=== PATIENT | female | born 1965 | race Caucasian/White ===

== ENCOUNTER 2016-10-14 18:20 | Emergency (ER) | payer MEDICAID ==
[2016-10-14 18:28] VITALS: BP 124/78; BMI 26.3
--- NOTE | 2016-10-14 18:38 | DR.GENAD ---
HPI - PCP Primary Care Physician: nfd - HPI Comment HPI Comment: PATIENT IS NAUSEATED. NO DIARRHEA OR DYSURIA. HAVE CYST ON KIDNEY AND THAT AREA HURT WORSE. CURRENTLY UNDERGOING WORKUP BY FISCAL TECHNICIAN FOR PERSISTENT LEUKOCYTOSIS. - Complaint/Symptoms Chief Complaint Doctors Comments: ABDOMINAL AND GENERALIZE BODY PAIN TIMES SEVERAL DAYS, Chief Complaint:: pt states" i had blood work done today and i'm dehydrated i'm in so much pain all over my body" - Nurses notes reviewed Nurses Notes Review: Yes - Source History Provided: Patient - Mode of Arrival Mode of Arrival: Ambulatory - Timing Onset of Chief Complaint: 10/12/16 Came on: Gradually - Duration Duration: Constant Duration: Days - Severity Severity: Moderate PMH - PMH Past Medical History: Yes Past Medical History: Hypertension Past Medical History Comment: cyst on rt kidney Past Surgical History: Yes Surgical History: Abdominal Surgery, Appendectomy, , Cholecystectomy, Hysterectomy - Family History History of Family Medical Conditions: Yes Family Medical History: Cancer - Social History Type of Tobacco Use: Cigarettes Does any household member use tobacco: Yes Alcohol Use: None Do you use any recreational Drugs:: No Lives With: Family Lives Where: Home - infectious screening In the last 2 months have you had wt loss of >10#?: NO Have you had fever, night sweats or hemotysis?: No Have you traveled outside the country in the last 6 months?: No Isolation: Standard ROS - Review of Systems Constitutional: Weakness, Fatigue. negative: Chills, Fever Eyes: No Symptoms Reported. negative: Eye Pain, Discharge ENTM: No Symptoms Reported. negative: Ear Pain, Nose Discharge, Nose Congestion , Throat Pain Respiratoy: No Symptoms Reported. negative: Productive Cough, Short of Breath, Wheezing, Hemoptysis Cardiovascular: No Symptoms Reported Gastrointestinal/Abdominal: Abdominal Pain, Nausea Genitourinary: No Symptoms Reported. negative: Dysuria, Frequency, Hematuria Neurological: Weakness. negative: Headache, Dizziness Musculoskeletal: Muscle Pain Integumentary: No Symptoms Reported Hematologic/Lymphatic: No Symptoms Reported Endocrine: No Symptoms Reported All Other Systems: Reviewed and Negative PE - Vital Signs Vitals: Temperature 99 F Pulse Rate 110 Respiratory Rate 18 Blood Pressure 124/78 O2 Sat by Pulse Oximetry 98 - General Limitations: No Limitations General Appearance: Alert - Head Head Exam: Normal Inspection - Eyes Eye exam: Normal Appearance - ENT ENT Exam: Normal External Ear Exam External Ear Exam: Normal External Inspection TM/Canal Exam: Bilateral Normal Nose Exam: Normal Nose Exam Mouth Exam: Normal Inspection Throat Exam: Normal Inspection - Neck Neck Exam: Trachea Midline - Chest Chest Inspection: Symmetric Chest Wall Rise - Respiratory Respiratory Exam: Normal Lung Sounds Bilat Respiratory Exam: Bilateral Clear to Auscultation - Cardiovascular Cardiovascular Exam: Regular Rate, Normal Rhythm, Normal Heart Sounds - Abdominal Exam Abdominal Exam: Normal Bowel Sounds, Soft, Tenderness Abdominal Tenderness: Diffuse, Moderate - Extremities Extremities Exam: Normal Inspection - Back Back Exam: Normal Inspection - Neurologic Neurological Exam: Alert, Oriented X3 - Psychiatric Psychiatric Exam: Anxious - Skin Skin Exam: Normal Color [facility] - Additional Information Additional Information Obtained From: Family (ABDOMINAL PAIN, UTI, PNEUMONIA, BOWEL OBSTRUCTION) - Differential Diagnosis Differential Diagnosis: ABDOMINAL PAIN, GENERALIZE PAIN, WEAKNESS, HISTORY LEUKOCYTOSIS Course - Treatment Treatment: SEE ORDERS - Education/Counseling Education/Counseling: Patient, Family, Education Educated On: Treatment, Diagnosis, Needs for Follow Up ROR - Labs Reviewed Result Diagrams: 10/14/16 19:00 10/14/16 19:00 Laboratory: WBC 20.4 X10^3/uL (3.6-10.0) H* 10/14/16 19:00 RBC 5.42 X10^6/uL (3.5-5.4) H 10/14/16 19:00 Hgb 13.3 g/dL (12.0-16.0) 10/14/16 19:00 Hct 40.6 % (36.0-47.0) 10/14/16 19:00 MCV 74.9 fL (80.0-100.0) L 10/14/16 19:00 MCH 24.5 pg (27.0-34.0) L 10/14/16 19:00 MCHC 32.8 g/dL (33.0-35.0) L 10/14/16 19:00 RDW 19.1 % (11.6-16.5) H 10/14/16 19:00 Plt Count 544 X10^3/uL (150.0-450.0) H 10/14/16 19:00 Plt Count Comment Adequate (ADEQUATE) 10/14/16 19:00 MPV 7.6 fL (7.4-11.0) 10/14/16 19:00 Neut % 74.9 % (42.0-75.0) 10/14/16 19:00 Lymph % 17.6 % (21.0-51.0) L 10/14/16 19:00 [place] % 4.4 % (0.0-13.0) 10/14/16 19:00 Eos % 2.3 % (0.9-2.9) 10/14/16 19:00 Baso % 0.8 % (0.2-1.0) 10/14/16 19:00 Neut # 15.3 x10^3/uL (2.2-4.8) H 10/14/16 19:00 Lymph # 3.6 X10^3/uL (1.3-2.9) H 10/14/16 19:00 [place] # 0.9 x10^3/uL (0.3-0.8) H 10/14/16 19:00 Eos # 0.5 x10^3/uL (0.0-0.2) H 10/14/16 19:00 Baso # 0.2 X10^3/uL (0.0-0.1) H 10/14/16 19:00 Absolute Nucleated RBC 0.0 /100WBC 10/14/16 19:00 Total Counted 100 10/14/16 19:00 Neutrophils % (Manual) 82 % (39-76) H 10/14/16 19:00 Lymphocytes % (Manual) 15 % (13-43) 10/14/16 19:00 Eosinophils % (Manual) 3 % (0-6) 10/14/16 19:00 Plt Morphology Comment Normal (NORMAL) 10/14/16 19:00 RBC Morphology Abnormal (NORMAL) A 10/14/16 19:00 Hypochromasia Slight A 10/14/16 19:00 Microcytosis 1+ A 10/14/16 19:00 Sodium 143 mmol/L (136-145) 10/14/16 19:00 Corrected Sodium TNP 10/14/16 19:00 Potassium 3.8 mmol/L (3.5-5.1) 10/14/16 19:00 Chloride 108 mmol/L (98-107) H 10/14/16 19:00 Carbon Dioxide 22.2 mmol/L (21-32) 10/14/16 19:00 BUN 7 mg/dL (7-18) 10/14/16 19:00 Creatinine 0.63 mg/dL (0.55-1.02) 10/14/16 19:00 Est GFR (MDRD) Af Amer > 60 (>60) 10/14/16 19:00 Est GFR (MDRD) Non-Af > 60 (>60) 10/14/16 19:00 Glucose 109 mg/dL (65-99) H 10/14/16 19:00 Calcium 9.0 mg/dL (8.5-10.1) 10/14/16 19:00 Corrected Calcium TNP 10/14/16 19:00 Total Bilirubin 0.10 mg/dL (0.2-1.0) L 10/14/16 19:00 AST 14 Units/L (15-37) L 10/14/16 19:00 ALT 23 Units/L (12-78) 10/14/16 19:00 Alkaline Phosphatase 145 Units/L (46-116) H 10/14/16 19:00 Total Protein 7.9 g/dL (6.4-8.2) 10/14/16 19:00 Albumin 3.8 g/dL (3.4-5.0) 10/14/16 19:00 Globulin 4.1 g/dL (2.5-4.5) 10/14/16 19:00 Albumin/Globulin Ratio 0.9 Ratio (1.1-2.1) L 10/14/16 19:00 Amylase 87 Units/L (25-115) 10/14/16 19:00 Lipase 249 Units/L (73-393) 10/14/16 19:00 Specimen Type Clean catch urine 10/14/16 19:25 Urine Color Yellow (YELLOW) 10/14/16 19:25 Urine Appearance Clear (CLEAR) 10/14/16 19:25 Urine pH 6.0 (5.0 - 8.0) 10/14/16 19:25 Ur Specific [place] 1.015 (1.000-1.030) 10/14/16 19:25 Urine Protein Negative (NEGATIVE) 10/14/16 19:25 Urine Glucose (UA) Negative (NEGATIVE) 10/14/16 19:25 Urine Ketones Negative (NEGATIVE) 10/14/16 19:25 Urine Occult Blood 1+ (NEGATIVE) 10/14/16 19:25 Urine Nitrite Negative (NEGATIVE) 10/14/16 19:25 Urine Bilirubin Negative (NEGATIVE) 10/14/16 19:25 Urine Urobilinogen Normal (NORMAL) 10/14/16 19:25 Ur Leukocyte Esterase 2+ (NEGATIVE) 10/14/16 19:25 Urine RBC 0-1 /HPF (NEGATIVE) 10/14/16 19:25 Urine WBC 0-2 /HPF (NEGATIVE) 10/14/16 19:25 Ur Squamous Epith Cells Few /HPF (NEGATIVE) 10/14/16 19:25 Amorphous Sediment Trace /HPF (NEGATIVE) 10/14/16 19:25 Urine Bacteria Trace /HPF (NEGATIVE) 10/14/16 19:25 Urine Mucus Rare /HPF (NEGATIVE) 10/14/16 19:25 Ur Culture Indicated? No/not indicated 10/14/16 19:25 - Diagnosis Discharge Problem: Generalized pain Abdominal pain Qualifiers: Abdominal location: generalized Qualified Code(s): R10.84 - Generalized abdominal pain Leukocytosis Qualifiers: Leukocytosis type: unspecified Qualified Code(s): D72.829 - Elevated white blood cell count, unspecified - Discharge Plan Disposition: HOME, SELF-CARE Condition: Stable Prescriptions: Ondansetron HCl [Zofran Tab 4 mg] 4 mg PO Q8H PRN #12 tab PRN Reason: Nausea/Vomiting Tramadol HCl 50 mg PO Q8H PRN #15 tab PRN Reason: Pain - Follow ups/Referrals Follow ups/Referrals: NFD,None [Primary Care Provider] - 10/15/16 - Instructions Instructions: Abdominal Pain, Adult, [id number], Leukocytosis Additional Instructions: return to ed if worse,
[2016-10-14] MEDS ORDERED: ZOFRAN INJ 4 MG VIAL IVP ONE (18:47)
[2016-10-14] MEDS ORDERED: DEMEROL INJ IVP ONE (18:47)
[2016-10-14] MEDS ORDERED: ZOFRAN INJ 4 MG VIAL ONE (18:54)
[2016-10-14] MEDS ORDERED: NS 1000 ML 1,000 ML ONE (18:54)
[2016-10-14] MEDS ORDERED: DEMEROL INJ ONE (18:56)
[2016-10-14] MEDS ORDERED: NS 1000 ML 1,000 ML IV SCH (19:00)
[2016-10-14 19:20] LABS: BASOPHILS # (AUTO) 0.2 X10^3/uL (0.0-0.1); BASOPHILS % (AUTO) 0.8 % (0.2-1.0); EOSINOPHILS # (AUTO) 0.5 x10^3/uL (0.0-0.2); EOSINOPHILS % (AUTO) 2.3 % (0.9-2.9); HEMATOCRIT 40.6 % (36.0-47.0); HEMOGLOBIN 13.3 g/dL (12.0-16.0); LYMPHOCYTES # (AUTO) 3.6 X10^3/uL (1.3-2.9); LYMPHOCYTES % (AUTO) 17.6 % (21.0-51.0); MEAN CORPUSCULAR HEMOGLOBIN 24.5 pg (27.0-34.0); MEAN CORPUSCULAR HGB CONC 32.8 g/dL (33.0-35.0); MEAN CORPUSCULAR VOLUME 74.9 fL (80.0-100.0); MEAN PLATELET VOLUME 7.6 fL (7.4-11.0); MONOCYTES # (AUTO) 0.9 x10^3/uL (0.3-0.8); MONOCYTES % (AUTO) 4.4 % (0.0-13.0); NEUTROPHILS # (AUTO) 15.3 x10^3/uL (2.2-4.8); NEUTROPHILS % (AUTO) 74.9 % (42.0-75.0); PLATELET COUNT 544 X10^3/uL (150.0-450.0); RED BLOOD COUNT 5.42 X10^6/uL (3.5-5.4); RED CELL DISTRIBUTION WIDTH 19.1 % (11.6-16.5)
[2016-10-14 19:27] LABS: WHITE BLOOD COUNT 20.4 X10^3/uL (3.6-10.0)
[2016-10-14 19:29] LABS: ALANINE AMINOTRANSFERASE 23 Units/L (12-78); ALBUMIN 3.8 g/dL (3.4-5.0); ALKALINE PHOSPHATASE 145 Units/L (46-116); AMYLASE 87 Units/L (25-115); ASPARTATE AMINO TRANSFERASE 14 Units/L (15-37); BLOOD UREA NITROGEN 7 mg/dL (7-18); CARBON DIOXIDE 22.2 mmol/L (21-32); CHLORIDE 108 mmol/L (98-107); CREATININE 0.63 mg/dL (0.55-1.02); GLUCOSE 109 mg/dL (65-99); LIPASE 249 Units/L (73-393); SODIUM 143 mmol/L (136-145); TOTAL PROTEIN 7.9 g/dL (6.4-8.2); eGFR BLACK RACES > 60 (>60); eGFR NON BLACK RACES > 60 (>60)
[2016-10-14 19:35] LABS: HYPOCHROMASIA SLIGHT; MICROCYTOSIS 1+; PLATELET MORPHOLOGY COMMENT NORMAL (NORMAL)
[2016-10-14 19:51] LABS: BILIRUBIN,URINE NEGATIVE (NEGATIVE); BLOOD/HEMOGLOBIN,URINE 1+ (NEGATIVE); GLUCOSE, URINE NEGATIVE (NEGATIVE); KETONES,URINE NEGATIVE (NEGATIVE); LEUKOCYTE ESTERASE ,URINE 2+ (NEGATIVE); NITRITES,URINE NEGATIVE (NEGATIVE); PROTEIN,URINE NEGATIVE (NEGATIVE); UROBILINOGEN,URINE NORMAL (NORMAL)
[2016-10-14 19:58] LABS: APPEARANCE,URINE CLEAR (CLEAR); BACTERIA,URINE TRACE /HPF (NEGATIVE); COLOR,URINE YELLOW (YELLOW); RBC,URINE 0-1 /HPF (NEGATIVE); SQUAMOUS EPITHELIAL CELL,UR FEW /HPF (NEGATIVE)
[2016-10-14 19:59] LABS: AMORPHOUS SEDIMENT,UR TRACE /HPF (NEGATIVE); MUCUS,URINE RARE /HPF (NEGATIVE)
--- NOTE | 2016-10-14 20:18 | RAD ---
HISTORY: Fever. Study: Single-view chest. Comparison: Acute abdominal series dated April 26, 2016. Findings: The trachea is midline. The cardiac silhouette is normal. The lungs are clear without focal infilt rate or effusion. The bony thorax is unremarkable. IMPRESSION: No acute cardiopulmonary disease. Reported By:
--- NOTE | 2016-10-14 20:29 | CT ---
CT OF THE ABDOMEN AND PELVIS WITHOUT CONTRAST HISTORY: Abdominal pain. Comparison: None Technique: Multiple axial images of the abdomen and pelvis were obtained from the lung bases to the pubic symph ysis without the administration of IV contrast. Dose reduction techniques including Automated Expos ure Control (AEC) and adjustment of mA and kV were utlized. Findings: The heart is normal in size. There is no pericardial effusion. Lung bases are clear without focal co nsolidation, pleural effusion or pneumothorax. The sensitivity for focal lesion detection within the solid abdominal viscera is diminished without the use of IV contrast. Liver and spleen are normal in size, and contour. No focal lesions. No ductal dilitation. Gallbladde r absent. The pancreas is unremarkable. Adrenal glands are normal. Kidneys are normal in contour wit hout hydronephrosis or nephrolithiasis. Simple right renal cyst. No bowel obstruction or inflammation. No abnormal appearing mesenteric or retroperitoneal lymph nod es. No free fluid or fluid collections. The bladder is normal in appearance. Status post hysterectomy. No free fluid or abnormal pelvic lymp h nodes. No aggressive osseous lesions. IMPRESSION: 1. No source of patient's right abdominal pain is identified. Reported By:
[2016-10-14] MEDS ORDERED: ULTRAM PO ONE (21:19)
[2016-10-14] MEDS ORDERED: ULTRAM ONE (21:23)
== END 2016-10-14 21:40 | disposition home or self-care (01) ==
LOC: ER 18:20
DX: R10.84 Generalized abdominal pain (principal); D72.828 Other elevated white blood cell count; R52 Pain, unspecified
CPT/HCPCS: 36415; 71010; 74176; 80053; 81001; 82150; 83690; 85025; 96365; 96367; 96374; 96375; 99283; A4222; J2175; J2405

== ENCOUNTER → 2017-01-23 | Outpatient (CLI) | payer MEDICAID ==
--- NOTE | 2017-01-23 12:12 | MRI ---
HISTORY: Bilateral headaches. Study: MRI brain without contrast. Comparison: None. Technique: Multiplanar multi-sequence MRI of the brain was obtained utilizing standard departmental protocol. Sagittal and axial T1 weighted images were obtained. Axial T2 and flair weighted images were performed as well. Axial diffusion weighted and ADC trace mapping was performed. Findings: The midline structures appear unremarkable. The evaluation of the brain parenchyma demonstrates no abnormal signal characteristics to suggest intraparenchymal mass or hemorrhage. No extra-axial flui d collections are observed. The ventricular system appears symmetric and nondilated. The CP angle is normal in its appearance without brainstem mass or evidence for acoustic neuroma. The flow void s on both T1 and T2 weighted imaging appear unremarkable. Evaluation of the diffusion weighted imag ing does not demonstrate abnormal signal characteristics to suggest acute ischemic change. Mucous r etention cyst within the right maxillary sinus. Otherwise the visualized paranasal sinuses and masto id air cells are clear. IMPRESSION: 1. Unremarkable MRI of the brain without contrast. Reported By:
== END ==
LOC: RAD 10:27
PROVIDERS: ATTEND Psychiatry & Neurology Neurology
DX: R51 Headache (principal)
CPT/HCPCS: 70551

== ENCOUNTER 2017-08-27 11:59 | Emergency (ER) | payer MEDICAID ==
[2017-08-27 12:14] VITALS: BP 125/76; BMI 27.8
--- NOTE | 2017-08-27 12:47 | DR.GENAD ---
HPI - PCP Primary Care Physician: dr perry - Complaint/Symptoms Chief Complaint:: patient stated 3 weeks ago she has been feeling like she has been cold,hot,fever and body aches. she stated her amonia level was high one time and was in the hospital last year for it. - Source History Provided: Patient - Mode of Arrival Mode of Arrival: Ambulatory - Timing Onset of Chief Complaint: 08/06/17 PMH - PMH Past Medical History: Yes Past Medical History: Migraines, Hypertension Past Medical History Comment: hx 'high NH3' but no dx cirrhosis or hepatitis Past Surgical History: Yes Surgical History: Abdominal Surgery, Appendectomy, , Cholecystectomy, Hysterectomy - Family History History of Family Medical Conditions: Yes Family Medical History: Cancer - Social History Does patient currently use any type of tobacco product: Yes Have you used tobacco products in the last 12 months: Yes Type of Tobacco Use: Cigarettes How many years tobacco product used: 30 Does any household member use tobacco: Yes Alcohol Use: None Do you use any recreational Drugs:: No Lives With: Alone Lives Where: Home - infectious screening In the last 2 months have you had wt loss of >10#?: NO Have you had fever, night sweats or hemotysis?: No Have you traveled outside the country in the last 6 months?: No Isolation: Standard ROS - Review of Systems Constitutional: See HPI, Chills, Diaphoresis, Fever, Malaise, Weakness Eyes: No Symptoms Reported ENTM: Nose Congestion, Throat Pain Respiratoy: Non-Productive Cough Cardiovascular: No Symptoms Reported. negative: Edema, Palpitations Gastrointestinal/Abdominal: Diarrhea, Nausea, Vomiting Genitourinary: No Symptoms Reported Neurological: No Symptoms Reported Musculoskeletal: Joint Pain, Muscle Pain (diffuse) Integumentary: No Symptoms Reported Hematologic/Lymphatic: No Symptoms Reported Endocrine: No Symptoms Reported Psychiatric: No Symptoms Reported All Other Systems: Reviewed and Negative PE - Vital Signs Vitals: Temperature 98.8 F Pulse Rate 94 Respiratory Rate 18 Blood Pressure 125/76 O2 Sat by Pulse Oximetry 96 - General Limitations: No Limitations General Appearance: Alert, In No Apparent Distress. negative: Appears Intoxicated, Anxious, Lethargic, Obtunded, In Distress, Obese, Cachectic - Head Head Exam: Normal Inspection, Normocephalic - Eyes Eye exam: Normal Appearance - ENT ENT Exam: Other (both frontal and both max sinuses +TTP) Nose Exam: Normal Nose Exam Mouth Exam: Normal Inspection Throat Exam: Tonsillar Erythema. negative: Tonsillar Exudate, R Peritonsillar Mass, L Peritonsillar Mass - Neck Neck Exam: Normal Inspection, Full ROM - Chest Chest Inspection: Normal Inspection, Symmetric Chest Wall Rise - Respiratory Respiratory Exam: Normal Lung Sounds Bilat Respiratory Exam: Bilateral Clear to Auscultation - Cardiovascular Cardiovascular Exam: Regular Rate, Normal Rhythm, Normal Heart Sounds - Abdominal Exam Abdominal Exam: Normal Inspection, Normal Bowel Sounds, Soft. negative: Tenderness, Guarding, Rebound, Rigidity - Extremities Extremities Exam: Normal Inspection, Full ROM - Back Back Exam: (R) CVA Tenderness, (L) CVA Tenderness - Neurologic Neurological Exam: Alert, Oriented X3 - Psychiatric Psychiatric Exam: Normal Affect, Normal Mood ROR - Labs Reviewed Laboratory Results Reviewed?: Yes (flu neg, strep -, UA +) Result Diagrams: 08/27/17 13:00 08/27/17 13:00 Laboratory: WBC 22.2 X10^3/uL (3.6-10.0) H 08/27/17 13:00 RBC 5.27 X10^6/uL (3.5-5.4) 08/27/17 13:00 Hgb 13.6 g/dL (12.0-16.0) 08/27/17 13:00 Hct 40.6 % (36.0-47.0) 08/27/17 13:00 MCV 77.1 fL (80.0-100.0) L 08/27/17 13:00 MCH 25.8 pg (27.0-34.0) L 08/27/17 13:00 MCHC 33.5 g/dL (33.0-35.0) 08/27/17 13:00 RDW 17.4 % (11.6-16.5) H 08/27/17 13:00 Plt Count 598 X10^3/uL (150.0-450.0) H 08/27/17 13:00 Plt Count Comment Increased (ADEQUATE) A 08/27/17 13:00 MPV 7.7 fL (7.4-11.0) 08/27/17 13:00 Neut % 82.2 % (42.0-75.0) H 08/27/17 13:00 Lymph % 11.4 % (21.0-51.0) L 08/27/17 13:00 [place] % 3.9 % (0.0-13.0) 08/27/17 13:00 Eos % 1.7 % (0.9-2.9) 08/27/17 13:00 Baso % 0.8 % (0.2-1.0) 08/27/17 13:00 Neut # 18.2 x10^3/uL (2.2-4.8) H 08/27/17 13:00 Lymph # 2.5 X10^3/uL (1.3-2.9) 08/27/17 13:00 [place] # 0.9 x10^3/uL (0.3-0.8) H 08/27/17 13:00 Eos # 0.4 x10^3/uL (0.0-0.2) H 08/27/17 13:00 Baso # 0.2 X10^3/uL (0.0-0.1) H 08/27/17 13:00 Absolute Nucleated RBC 0.0 /100WBC 08/27/17 13:00 Total Counted 100 08/27/17 13:00 Neutrophils % (Manual) 84 % (39-76) H 08/27/17 13:00 Lymphocytes % (Manual) 10 % (13-43) L 08/27/17 13:00 Monocytes % (Manual) 4 % (4-9) 08/27/17 13:00 Eosinophils % (Manual) 2 % (0-6) 08/27/17 13:00 Nucleated RBCs 2 08/27/17 13:00 Plt Morphology Comment Normal (NORMAL) 08/27/17 13:00 RBC Morphology Normal (NORMAL) 08/27/17 13:00 Sodium 137 mmol/L (136-145) 08/27/17 13:00 Corrected Sodium 138 mmol/L (136-145) 08/27/17 13:00 Potassium 3.5 mmol/L (3.5-5.1) 08/27/17 13:00 Chloride 101 mmol/L (98-107) 08/27/17 13:00 Carbon Dioxide 28.1 mmol/L (21-32) 08/27/17 13:00 BUN 5 mg/dL (7-18) L 08/27/17 13:00 Creatinine 0.70 mg/dL (0.55-1.02) 08/27/17 13:00 Est GFR (MDRD) Af Amer > 60 (>60) 08/27/17 13:00 Est GFR (MDRD) Non-Af > 60 (>60) 08/27/17 13:00 Glucose 125 mg/dL (65-99) H 08/27/17 13:00 Calcium 9.6 mg/dL (8.5-10.1) 08/27/17 13:00 Corrected Calcium TNP 08/27/17 13:00 Total Bilirubin 0.20 mg/dL (0.2-1.0) 08/27/17 13:00 AST 18 Units/L (15-37) 08/27/17 13:00 ALT 17 Units/L (12-78) 08/27/17 13:00 Alkaline Phosphatase 128 Units/L (46-116) H 08/27/17 13:00 Ammonia 22 umol/L (11-32) 08/27/17 13:00 Total Protein 8.3 g/dL (6.4-8.2) H 08/27/17 13:00 Albumin 3.8 g/dL (3.4-5.0) 08/27/17 13:00 Globulin 4.5 g/dL (2.5-4.5) 08/27/17 13:00 Albumin/Globulin Ratio 0.8 Ratio (1.1-2.1) L 08/27/17 13:00 Specimen Type Clean catch urine 08/27/17 14:55 Urine Color Yellow (YELLOW) 08/27/17 14:55 Urine Appearance Hazy (CLEAR) 08/27/17 14:55 Urine pH 6.5 (5.0 - 8.0) 08/27/17 14:55 Ur Specific [place] 1.015 (1.000-1.030) 08/27/17 14:55 Urine Protein 2+ (NEGATIVE) 08/27/17 14:55 Urine Glucose (UA) Negative (NEGATIVE) 08/27/17 14:55 Urine Ketones Negative (NEGATIVE) 08/27/17 14:55 Urine Occult Blood 1+ (NEGATIVE) 08/27/17 14:55 Urine Nitrite Negative (NEGATIVE) 08/27/17 14:55 Urine Bilirubin Negative (NEGATIVE) 08/27/17 14:55 Urine Urobilinogen Normal (NORMAL) 08/27/17 14:55 Ur Leukocyte Esterase 1+ (NEGATIVE) 08/27/17 14:55 Urine RBC 0-2 /HPF (NEGATIVE) 08/27/17 14:55 Urine WBC 3-5 /HPF (NEGATIVE) 08/27/17 14:55 Ur Squamous Epith Cells Few /HPF (NEGATIVE) 08/27/17 14:55 Urine Bacteria 1+ /HPF (NEGATIVE) 08/27/17 14:55 Ur Culture Indicated? No/not indicated 08/27/17 14:55 Influenza Type A (PCR) Negative (NEGATIVE) 08/27/17 12:59 Influenza Type B (PCR) Negative (NEGATIVE) 08/27/17 12:59 S. pyogenes (TEM-PCR) Not detected (NOT DETECT) 08/27/17 12:59 - XRAY XRAY Interpreted by: Radiologist XRAY Findings: nothing acute on CXR - Diagnosis Discharge Problem: Sinusitis, acute, UTI (urinary tract infection) - Discharge Plan Disposition: 01 HOME, SELF-CARE Condition: Stable Prescriptions: Ondansetron [Zofran ODT 8 mg] 8 mg PO Q8H PRN #15 tab PRN Reason: Nausea/Vomiting - Follow ups/Referrals Follow ups/Referrals: NFD,None [Primary Care Provider] - 3 days - Instructions
[2017-08-27 13:17] LABS: BASOPHILS # (AUTO) 0.2 X10^3/uL (0.0-0.1); BASOPHILS % (AUTO) 0.8 % (0.2-1.0); EOSINOPHILS # (AUTO) 0.4 x10^3/uL (0.0-0.2); EOSINOPHILS % (AUTO) 1.7 % (0.9-2.9); HEMATOCRIT 40.6 % (36.0-47.0); HEMOGLOBIN 13.6 g/dL (12.0-16.0); LYMPHOCYTES # (AUTO) 2.5 X10^3/uL (1.3-2.9); LYMPHOCYTES % (AUTO) 11.4 % (21.0-51.0); MEAN CORPUSCULAR HEMOGLOBIN 25.8 pg (27.0-34.0); MEAN CORPUSCULAR HGB CONC 33.5 g/dL (33.0-35.0); MEAN CORPUSCULAR VOLUME 77.1 fL (80.0-100.0); MEAN PLATELET VOLUME 7.7 fL (7.4-11.0); MONOCYTES # (AUTO) 0.9 x10^3/uL (0.3-0.8); MONOCYTES % (AUTO) 3.9 % (0.0-13.0); NEUTROPHILS # (AUTO) 18.2 x10^3/uL (2.2-4.8); NEUTROPHILS % (AUTO) 82.2 % (42.0-75.0); PLATELET COUNT 598 X10^3/uL (150.0-450.0); RED BLOOD COUNT 5.27 X10^6/uL (3.5-5.4); RED CELL DISTRIBUTION WIDTH 17.4 % (11.6-16.5); WHITE BLOOD COUNT 22.2 X10^3/uL (3.6-10.0)
[2017-08-27 13:20] LABS: AMMONIA 22 umol/L (11-32)
[2017-08-27 13:23] LABS: ALANINE AMINOTRANSFERASE 17 Units/L (12-78); ALBUMIN 3.8 g/dL (3.4-5.0); ALKALINE PHOSPHATASE 128 Units/L (46-116); ASPARTATE AMINO TRANSFERASE 18 Units/L (15-37); BLOOD UREA NITROGEN 5 mg/dL (7-18); CALCIUM 9.6 mg/dL (8.5-10.1); CARBON DIOXIDE 28.1 mmol/L (21-32); CHLORIDE 101 mmol/L (98-107); COR NA(FOR HYPERGLY) 138 mmol/L (136-145); SODIUM 137 mmol/L (136-145); TOTAL PROTEIN 8.3 g/dL (6.4-8.2); eGFR BLACK RACES > 60 (>60); eGFR NON BLACK RACES > 60 (>60)
[2017-08-27 14:00] LABS: PLATELET MORPHOLOGY COMMENT NORMAL (NORMAL)
--- NOTE | 2017-08-27 14:53 | RAD ---
HISTORY: Fever Study: Chest PA and lateral Comparison: 10/14/2016 Findings: The heart is within normal limits in size. The sandee are normal. The lungs are well inflated and free of acute alveolar infiltrates. No pleural effusions are identified. The bony thorax is unremarkable. IMPRESSION: No significant abnormality identified Reported By:
[2017-08-27 15:05] LABS: BILIRUBIN,URINE NEGATIVE (NEGATIVE); BLOOD/HEMOGLOBIN,URINE 1+ (NEGATIVE); GLUCOSE, URINE NEGATIVE (NEGATIVE); KETONES,URINE NEGATIVE (NEGATIVE); LEUKOCYTE ESTERASE ,URINE 1+ (NEGATIVE); NITRITES,URINE NEGATIVE (NEGATIVE); PH,URINE 6.5 (5.0 - 8.0); PROTEIN,URINE 2+ (NEGATIVE); UROBILINOGEN,URINE NORMAL (NORMAL)
[2017-08-27 15:08] LABS: APPEARANCE,URINE HAZY (CLEAR); COLOR,URINE YELLOW (YELLOW)
[2017-08-27 15:11] LABS: BACTERIA,URINE 1+ /HPF (NEGATIVE); RBC,URINE 0-2 /HPF (NEGATIVE); SQUAMOUS EPITHELIAL CELL,UR FEW /HPF (NEGATIVE)
[2017-08-27] MEDS ORDERED: ROCEPHIN VIAL 1 GM IM ONE (15:31)
[2017-08-27] MEDS ORDERED: ROCEPHIN VIAL 1 GM ONE (15:38)
== END 2017-08-27 16:03 | disposition home or self-care (01) ==
LOC: ER 12:11
DX: J01.80 Other acute sinusitis (principal); N39.0 Urinary tract infection, site not specified
CPT/HCPCS: 36415; 71046; 80053; 81001; 82140; 85025; 87502; 87651; 96372; 99282; 99283; J0696

== ENCOUNTER 2017-09-06 15:50 | Inpatient (IN) | payer MEDICAID ==
[2017-09-06] MEDS ORDERED: ASPIRIN 81 MG CHEWTAB ONE (16:01)
[2017-09-06 16:30] LABS: BASOPHILS # (AUTO) 0.2 X10^3/uL (0.0-0.1); BASOPHILS % (AUTO) 1.2 % (0.2-1.0); EOSINOPHILS # (AUTO) 0.4 x10^3/uL (0.0-0.2); HEMATOCRIT 42.6 % (36.0-47.0); HEMOGLOBIN 14.3 g/dL (12.0-16.0); LYMPHOCYTES # (AUTO) 3.7 X10^3/uL (1.3-2.9); LYMPHOCYTES % (AUTO) 19.5 % (21.0-51.0); MEAN CORPUSCULAR HEMOGLOBIN 25.8 pg (27.0-34.0); MEAN CORPUSCULAR HGB CONC 33.6 g/dL (33.0-35.0); MEAN PLATELET VOLUME 7.9 fL (7.4-11.0); MONOCYTES % (AUTO) 5.5 % (0.0-13.0); NEUTROPHILS # (AUTO) 13.6 x10^3/uL (2.2-4.8); NEUTROPHILS % (AUTO) 71.8 % (42.0-75.0); PLATELET COUNT 566 X10^3/uL (150.0-450.0); RED BLOOD COUNT 5.53 X10^6/uL (3.5-5.4); RED CELL DISTRIBUTION WIDTH 17.1 % (11.6-16.5)
--- NOTE | 2017-09-06 16:42 | RAD ---
HISTORY: Mid sternal chest pain Study: Single-view chest Comparison: 08/27/2017 Findings: The trachea is midline. The cardiac silhouette is unremarkable. The lungs are clear without focal i nfiltrate or effusion. The bony thorax is unremarkable. IMPRESSION: 1. No acute cardiopulmonary disease. Reported By:
[2017-09-06 16:44] LABS: PLATELET MORPHOLOGY COMMENT NORMAL (NORMAL)
[2017-09-06 16:45] LABS: HYPOCHROMASIA SLIGHT
[2017-09-06 16:57] LABS: ALANINE AMINOTRANSFERASE 28 Units/L (12-78); ALBUMIN 4.1 g/dL (3.4-5.0); ALKALINE PHOSPHATASE 133 Units/L (46-116); ASPARTATE AMINO TRANSFERASE 11 Units/L (15-37); BLOOD UREA NITROGEN 7 mg/dL (7-18); CALCIUM 9.9 mg/dL (8.5-10.1); CARBON DIOXIDE 26.7 mmol/L (21-32); CHLORIDE 101 mmol/L (98-107); CKMB % 3.6 % (<4); COR NA(FOR HYPERGLY) 139 mmol/L (136-145); CREATINE KINASE 31 Units/L (26-192); CREATINE KINASE MB 1.1 ng/mL (0-4.0); MAGNESIUM 1.8 mg/dL (1.7-2.9); SODIUM 139 mmol/L (136-145); TOTAL PROTEIN 8.4 g/dL (6.4-8.2); TROPONIN I < 0.02 ng/mL (0-1.5); eGFR BLACK RACES > 60 (>60); eGFR NON BLACK RACES > 60 (>60)
[2017-09-06] MEDS ORDERED: TORADOL 30 MG VIAL IVP ONE (17:09)
--- NOTE | 2017-09-06 17:10 | DR.GENAD ---
HPI - PCP Primary Care Physician: LUANNE - Complaint/Symptoms Chief Complaint:: PT C/O CHEST PAIN (MIDSTERNAL) THAT RADIATES TO LT SHOULDER. PT DESCRIBES HER PAIN A HEAVINESS. PT STATES THE PAIN STARTED LAST NIGHT. Self Treatment fo Chief Complaint: PERCOCET - Nurses notes reviewed Nurses Notes Review: Yes - Source History Provided: Patient - Mode of Arrival Mode of Arrival: Ambulatory - Timing Onset of Chief Complaint: 09/05/17 Came on: Suddenly - Duration Duration: Constant Duration: Days PMH - PMH Past Medical History: Yes Past Medical History: Migraines, Hypertension Past Surgical History: Yes Surgical History: Abdominal Surgery, Appendectomy, , Cholecystectomy, Hysterectomy - Family History History of Family Medical Conditions: Yes Family Medical History: Cancer - Social History Does patient currently use any type of tobacco product: Yes Have you used tobacco products in the last 12 months: Yes Type of Tobacco Use: Cigarettes Does any household member use tobacco: Yes Alcohol Use: None Do you use any recreational Drugs:: No Lives With: Alone Lives Where: Home - infectious screening In the last 2 months have you had wt loss of >10#?: NO Have you had fever, night sweats or hemotysis?: No Have you traveled outside the country in the last 6 months?: No Isolation: Standard PE - Vital Signs Vitals: Temperature 98.5 F Pulse Rate [Apical] 87 Pulse Rate 99 Respiratory Rate 15 Blood Pressure [Left Arm] 134/89 Blood Pressure 142/87 O2 Sat by Pulse Oximetry 99 ROR - Labs Reviewed Result Diagrams: 09/06/17 16:24 09/06/17 16:24 Laboratory: WBC 19.0 X10^3/uL (3.6-10.0) H 09/06/17 16:24 RBC 5.53 X10^6/uL (3.5-5.4) H 09/06/17 16:24 Hgb 14.3 g/dL (12.0-16.0) 09/06/17 16:24 Hct 42.6 % (36.0-47.0) 09/06/17 16:24 MCV 77.0 fL (80.0-100.0) L 09/06/17 16:24 MCH 25.8 pg (27.0-34.0) L 09/06/17 16:24 MCHC 33.6 g/dL (33.0-35.0) 09/06/17 16:24 RDW 17.1 % (11.6-16.5) H 09/06/17 16:24 Plt Count 566 X10^3/uL (150.0-450.0) H 09/06/17 16:24 Plt Count Comment Adequate (ADEQUATE) 09/06/17 16:24 MPV 7.9 fL (7.4-11.0) 09/06/17 16:24 Neut % 71.8 % (42.0-75.0) 09/06/17 16:24 Lymph % 19.5 % (21.0-51.0) L 09/06/17 16:24 [place] % 5.5 % (0.0-13.0) 09/06/17 16:24 Eos % 2.0 % (0.9-2.9) 09/06/17 16:24 Baso % 1.2 % (0.2-1.0) H 09/06/17 16:24 Neut # 13.6 x10^3/uL (2.2-4.8) H 09/06/17 16:24 Lymph # 3.7 X10^3/uL (1.3-2.9) H 09/06/17 16:24 [place] # 1.0 x10^3/uL (0.3-0.8) H 09/06/17 16:24 Eos # 0.4 x10^3/uL (0.0-0.2) H 09/06/17 16:24 Baso # 0.2 X10^3/uL (0.0-0.1) H 09/06/17 16:24 Absolute Nucleated RBC 0.0 /100WBC 09/06/17 16:24 Plt Morphology Comment Normal (NORMAL) 09/06/17 16:24 RBC Morphology Abnormal (NORMAL) A 09/06/17 16:24 Hypochromasia Slight A 09/06/17 16:24 INR Target Range - 09/06/17 16:24 INR 1.01 (0.8-1.3) 09/06/17 16:24 PTT 28.8 SECONDS (22.9-36.5) 09/06/17 16:24 PTT Comment - 09/06/17 16:24 Sodium 139 mmol/L (136-145) 09/06/17 16:24 Corrected Sodium 139 mmol/L (136-145) 09/06/17 16:24 Potassium 2.7 mmol/L (3.5-5.1) L* 09/06/17 16:24 Chloride 101 mmol/L (98-107) 09/06/17 16:24 Carbon Dioxide 26.7 mmol/L (21-32) 09/06/17 16:24 BUN 7 mg/dL (7-18) 09/06/17 16:24 Creatinine 0.70 mg/dL (0.55-1.02) 09/06/17 16:24 Est GFR (MDRD) Af Amer > 60 (>60) 09/06/17 16:24 Est GFR (MDRD) Non-Af > 60 (>60) 09/06/17 16:24 Glucose 119 mg/dL (65-99) H 09/06/17 16:24 Calcium 9.9 mg/dL (8.5-10.1) 09/06/17 16:24 Corrected Calcium TNP 09/06/17 16:24 Magnesium 1.8 mg/dL (1.7-2.9) 09/06/17 16:24 Total Bilirubin 0.20 mg/dL (0.2-1.0) 09/06/17 16:24 AST 11 Units/L (15-37) L 09/06/17 16:24 ALT 28 Units/L (12-78) 09/06/17 16:24 Alkaline Phosphatase 133 Units/L (46-116) H 09/06/17 16:24 Creatine Kinase 31 Units/L (26-192) 09/06/17 16:24 CK-MB (CK-2) 1.1 ng/mL (0-4.0) 09/06/17 16:24 CK/CKMB % Calc 3.6 % (<4) 09/06/17 16:24 Troponin I < 0.02 ng/mL (0-1.5) 09/06/17 16:24 Total Protein 8.4 g/dL (6.4-8.2) H 09/06/17 16:24 Albumin 4.1 g/dL (3.4-5.0) 09/06/17 16:24 Globulin 4.3 g/dL (2.5-4.5) 09/06/17 16:24 Albumin/Globulin Ratio 1.0 Ratio (1.1-2.1) L 09/06/17 16:24 H. pylori IgG Antibody Negative (NEGATIVE) 09/06/17 16:24 - Discharge Plan Condition: Stable - Follow ups/Referrals Follow ups/Referrals: CL AGUILAR [Primary Care Provider] - 3 days - Instructions
[2017-09-06] MEDS ORDERED: K-LYTE EFFERVESCENT ONE (17:15)
[2017-09-06] MEDS ORDERED: K-LYTE EFFERVESCENT PO ONE (17:15)
[2017-09-06] MEDS ORDERED: TORADOL 30 MG VIAL ONE (17:15)
[2017-09-06] MEDS ORDERED: KENALOG INJ 40 MG IM ONE (17:16)
[2017-09-06] MEDS ORDERED: ROCEPHIN 1 GM IV PREMIX 1 GM/50 ML IV.SOLN. IV ONE ×2 (18:06→18:56)
[2017-09-06] MEDS ORDERED: NS 1000 ML 1,000 ML ONE (18:55)
[2017-09-06] MEDS: NS 1000 ML 1,000 ML IV SCH ×2 (19:05→22:03)
[2017-09-06] MEDS ORDERED: TORADOL 30 MG VIAL IVP PRN (20:21)
[2017-09-06] MEDS ORDERED: ZOFRAN INJ 4 MG VIAL IVP PRN (20:37)
[2017-09-06 20:45] LABS: BILIRUBIN,URINE NEGATIVE (NEGATIVE); BLOOD/HEMOGLOBIN,URINE 1+ (NEGATIVE); GLUCOSE, URINE NEGATIVE (NEGATIVE); KETONES,URINE NEGATIVE (NEGATIVE); LEUKOCYTE ESTERASE ,URINE 1+ (NEGATIVE); NITRITES,URINE NEGATIVE (NEGATIVE); PROTEIN,URINE 2+ (NEGATIVE); UROBILINOGEN,URINE NORMAL (NORMAL)
[2017-09-06 20:57] LABS: COLOR,URINE YELLOW (YELLOW)
[2017-09-06 20:58] LABS: AMORPHOUS SEDIMENT,UR TRACE /HPF (NEGATIVE); APPEARANCE,URINE CLEAR (CLEAR); MUCUS,URINE MODERATE /HPF (NEGATIVE)
[2017-09-06 21:00] LABS: BACTERIA,URINE TRACE /HPF (NEGATIVE); SQUAMOUS EPITHELIAL CELL,UR FEW /HPF (NEGATIVE)
[2017-09-06] MEDS ORDERED: TIZANIDINE HCL PO SCH (21:00)
[2017-09-06 21:01] LABS: RBC,URINE 0 - 3 /HPF (NEGATIVE)
[2017-09-06 21:17] VITALS: BMI 20.2
[2017-09-06] MEDS: NICOTINE PATCH TD SCH (21:47)
[2017-09-06] MEDS: VALIUM PO SCH (21:48)
[2017-09-06] MEDS: ZANAFLEX PO SCH (21:49)
[2017-09-06] MEDS: AMBIEN PO SCH (21:50)
[2017-09-06] MEDS: NORVASC TAB 10 MG PO SCH ×3 (21:52→21:56)
[2017-09-06] MEDS ORDERED: DIAZEPAM 10 MG PO SCH (22:00)
[2017-09-06] MEDS: MORPHINE SULFATE INJ 4 MG IVP PRN (22:03)
[2017-09-07 00:01] LABS: CREATINE KINASE 25 Units/L (26-192); CREATINE KINASE MB < 1.0 ng/mL (0-4.0); TROPONIN I < 0.02 ng/mL (0-1.5)
[2017-09-07] MEDS ORDERED: K-LYTE EFFERVESCENT PO ONE (01:52)
[2017-09-07] MEDS: MORPHINE SULFATE INJ 4 MG IVP PRN ×3 (06:07→18:21)
[2017-09-07] MEDS: VALIUM PO SCH ×3 (06:08→20:59)
[2017-09-07] MEDS: NS 1000 ML 1,000 ML IV SCH ×3 (06:09→21:01)
[2017-09-07 06:26] LABS: BASOPHILS # (AUTO) 0.2 X10^3/uL (0.0-0.1); EOSINOPHILS # (AUTO) 0.5 x10^3/uL (0.0-0.2); EOSINOPHILS % (AUTO) 2.3 % (0.9-2.9); HEMATOCRIT 40.8 % (36.0-47.0); HEMOGLOBIN 13.8 g/dL (12.0-16.0); LYMPHOCYTES # (AUTO) 4.2 X10^3/uL (1.3-2.9); LYMPHOCYTES % (AUTO) 19.6 % (21.0-51.0); MEAN CORPUSCULAR HEMOGLOBIN 26.3 pg (27.0-34.0); MEAN CORPUSCULAR HGB CONC 33.8 g/dL (33.0-35.0); MEAN CORPUSCULAR VOLUME 77.9 fL (80.0-100.0); MEAN PLATELET VOLUME 8.5 fL (7.4-11.0); MONOCYTES # (AUTO) 1.6 x10^3/uL (0.3-0.8); MONOCYTES % (AUTO) 7.6 % (0.0-13.0); NEUTROPHILS % (AUTO) 69.5 % (42.0-75.0); PLATELET COUNT 530 X10^3/uL (150.0-450.0); RED BLOOD COUNT 5.23 X10^6/uL (3.5-5.4); RED CELL DISTRIBUTION WIDTH 17.2 % (11.6-16.5); WHITE BLOOD COUNT 21.6 X10^3/uL (3.6-10.0)
[2017-09-07 06:36] LABS: CKMB % 3.2 % (<4); CREATINE KINASE 31 Units/L (26-192); TROPONIN I < 0.02 ng/mL (0-1.5)
[2017-09-07 06:39] LABS: ALANINE AMINOTRANSFERASE 22 Units/L (12-78); ALBUMIN 3.7 g/dL (3.4-5.0); ALKALINE PHOSPHATASE 117 Units/L (46-116); ASPARTATE AMINO TRANSFERASE 14 Units/L (15-37); BLOOD UREA NITROGEN 8 mg/dL (7-18); CALCIUM 9.5 mg/dL (8.5-10.1); CARBON DIOXIDE 21.9 mmol/L (21-32); CHLORIDE 107 mmol/L (98-107); CHOL/HDL RATIO 6.4 (0.0-5.0); CHOLESTEROL 232 mg/dL (0-200); CREATININE 0.59 mg/dL (0.55-1.02); HDL CHOLESTEROL 36 mg/dL (40-60); MAGNESIUM 1.9 mg/dL (1.7-2.9); SODIUM 142 mmol/L (136-145); TOTAL PROTEIN 7.8 g/dL (6.4-8.2); TRIGLYCERIDES 204 mg/dL (0-150); eGFR BLACK RACES > 60 (>60); eGFR NON BLACK RACES > 60 (>60)
[2017-09-07 06:55] LABS: PLATELET MORPHOLOGY COMMENT NORMAL (NORMAL)
[2017-09-07] MEDS: NICOTINE PATCH TD SCH (08:42)
[2017-09-07] MEDS: ROCEPHIN 1 GM IV PREMIX 1 GM/50 ML IV.SOLN. IV SCH (08:45)
[2017-09-07] MEDS: NORVASC TAB 10 MG PO SCH ×2 (11:13→20:59)
[2017-09-07] MEDS: ZANAFLEX PO SCH ×2 (11:13→20:57)
--- NOTE | 2017-09-07 11:32 | CT ---
HISTORY: Back pain, right lower quadrant pain Study: CT abdomen pelvis without contrast Comparison: 10/14/2016 Technique: Axial noncontrast images with coronal and sagittal reformats. Dose reduction procedures we re used with mA/kv adjusted for body size. Findings: The lung bases are clear. The liver, spleen, adrenal glands, and pancreas are within normal limits to the limitations of an unenhanced examination. The patient is status post cholecystectomy. The kidney s are unobstructed and without stones. No ureteral calculi are identified. Calcific atherosclerotic c hange is present in a nondilated abdominal aorta. No significant intraperitoneal or retroperitoneal l ymphadenopathy is identified. The appendix is not identified with absolute certainty. However, there are no secondary signs of appendicitis. There are no findings suggestive of diverticulitis or colitis . Examination of the pelvis demonstrated no evidence for pelvic masses, pelvic fluid, or pelvic lymph adenopathy. No bladder abnormality is identified. No lytic or blastic skeletal lesions are identified . IMPRESSION: No significant abnormality to the limitations of an examination performed without intravenous and wit hout oral contrast. Reported By:
[2017-09-07] MEDS: LEVAQUIN PREMIX IV 750 MG 750 MG/150 ML BAG IV SCH (13:59)
[2017-09-07] MEDS: PERCOCET TAB 5/325 MG PO PRN ×2 (14:00→20:59)
[2017-09-07] MEDS ORDERED: ASPIRIN 81 MG CHEWTAB PO ONE (16:21)
--- NOTE | 2017-09-07 18:23 | DR.H&P ---
H&P - History & Physical for Day of: H&P Date: 09/06/17 - Chief Complaint Chief Complaint: FLANK PAIN AND NAUSEA, COUGH - Allergies Allergies/Adverse Reactions: Allergies Allergy/AdvReac Type Severity Reaction Status Date / Time ketorolac [From Toradol] Allergy Verified 08/27/17 12:01 nalbuphine [From Nubain] Allergy Verified 08/27/17 12:01 prochlorperazine Allergy Verified 08/27/17 12:01 [From Compazine] propoxyphene Allergy Verified 09/06/17 21:23 [From Darvocet-N] - History of Present Illness History of Present Illness: 51 WF ER ADMISSION AFTER PRESENTING WITH CO BILATERAL FLANK PAIN WORSE ON THE RIGHT. PT CO DIARRHEA AND COUGH WITH CHEST CONGESTION. PT HAD ELEVATED WBC'S. PT HAS PMH OF ASTHMA, COPD, OA. PT ADMITTED FOR EVALUATION AND TREATMENT OF PAIN. CT ABD PELVIS ORDERED FOR Q AM - Past Medical History Past Medical History: Migraines, Hypertension - Past Surgical History Surgical History: Abdominal Surgery, Appendectomy, , Cholecystectomy, Hysterectomy - Family History Family Medical History: Cancer, Hypertension - Social History Does patient currently use any type of tobacco product: No Have you used tobacco products in the last 12 months: No Type of Tobacco Use: None Does any household member use tobacco: Yes Alcohol Use: None Drug Use: None - Medications Home Medications: Diazepam [Valium 10 mg] 10 mg PO TID 09/06/17 [History Confirmed 09/06/17] Oxycodone HCl/Acetaminophen [Percocet 10-325 mg Tablet] 1 tab PO BID 09/06/17 [ History Confirmed 09/06/17] Tizanidine HCl [Zanaflex] 10 mg PO BID 09/06/17 [History Confirmed 09/06/17] - Review of Systems Constitutional: Fever Eyes: No Symptoms Reported ENT: No Symptoms Reported Respiratory: Cough Cardiovascular: No Symptoms Reported Gastrointestinal: Nausea, Diarrhea, Other (FLANK PAIN) Musculoskeletal: No Symptoms Reported Skin: No Symptoms Reported Neurological: No Symptoms Reported - Physical Exam Vital Signs: Temperature 98.8 F Pulse Rate [Apical] 86 Pulse Rate 85 Respiratory Rate 20 Blood Pressure [Right Arm] 124/63 Blood Pressure [Left Arm] 106/71 Blood Pressure 142/87 O2 Sat by Pulse Oximetry 98 Oriented: Normal Eyes: Normal Ear: Normal Nose: Normal Throat: Normal Respiratory: Wheezes Throughout Cardiovascular: Normal : Normal Auscultation: Bowel Sounds: Normal Palpation: Normal Tenderness: Normal Skin: Normal Musculoskeletal: Back:Thoracic, Back:Lumbar Psychiatric: Anxiety Speech Pattern: Clear, Appropriate - Assessment/Plan (1) Abdominal pain Qualifiers: Abdominal location: generalized Qualified Code(s): R10.84 - Generalized abdominal pain Status: Acute Plan: ADMIT, ABDOMINAL PAIN CT ABD/PELVIS. ADMISSION LABS. BLOOD CULTURES, UC , STOOL STUDIES. REPEAT AM LABS (2) Leukocytosis Qualifiers: Leukocytosis type: unspecified Qualified Code(s): D72.829 - Elevated white blood cell count, unspecified Status: Acute (3) UTI (urinary tract infection) Status: Acute
[2017-09-07] MEDS: AMBIEN PO SCH (20:58)
[2017-09-07 21:03] LABS: CRYPTOSPORIDIUM PARVUM ANTIGEN NEGATIVE (NEGATIVE); GIARDIA LAMBLIA ANTIGEN NEGATIVE (NEGATIVE)
[2017-09-07 21:04] LABS: STOOL FOR WBC NEGATIVE (NEGATIVE)
[2017-09-08] MEDS: NS 1000 ML 1,000 ML IV SCH ×5 (01:18→21:20)
[2017-09-08] MEDS: MORPHINE SULFATE INJ 4 MG IVP PRN (02:36)
[2017-09-08 05:37] LABS: BASOPHILS # (AUTO) 0.2 X10^3/uL (0.0-0.1); BASOPHILS % (AUTO) 1.5 % (0.2-1.0); EOSINOPHILS # (AUTO) 0.5 x10^3/uL (0.0-0.2); EOSINOPHILS % (AUTO) 4.1 % (0.9-2.9); HEMATOCRIT 35.7 % (36.0-47.0); HEMOGLOBIN 11.8 g/dL (12.0-16.0); LYMPHOCYTES # (AUTO) 3.7 X10^3/uL (1.3-2.9); MEAN CORPUSCULAR HEMOGLOBIN 25.9 pg (27.0-34.0); MEAN CORPUSCULAR HGB CONC 33.1 g/dL (33.0-35.0); MEAN CORPUSCULAR VOLUME 78.2 fL (80.0-100.0); MEAN PLATELET VOLUME 8.4 fL (7.4-11.0); MONOCYTES # (AUTO) 0.9 x10^3/uL (0.3-0.8); NEUTROPHILS % (AUTO) 57.4 % (42.0-75.0); PLATELET COUNT 408 X10^3/uL (150.0-450.0); RED BLOOD COUNT 4.56 X10^6/uL (3.5-5.4); RED CELL DISTRIBUTION WIDTH 17.3 % (11.6-16.5); WHITE BLOOD COUNT 12.2 X10^3/uL (3.6-10.0)
[2017-09-08 05:50] LABS: ALANINE AMINOTRANSFERASE 19 Units/L (12-78); ALBUMIN 2.9 g/dL (3.4-5.0); ALKALINE PHOSPHATASE 93 Units/L (46-116); ASPARTATE AMINO TRANSFERASE 10 Units/L (15-37); BLOOD UREA NITROGEN 6 mg/dL (7-18); CALCIUM 8.8 mg/dL (8.5-10.1); CARBON DIOXIDE 26.4 mmol/L (21-32); CHLORIDE 108 mmol/L (98-107); COR CA(FOR HYPOALB) 9.7 mg/dL (8.5-10.1); CREATININE 0.54 mg/dL (0.55-1.02); SODIUM 142 mmol/L (136-145); TOTAL PROTEIN 6.4 g/dL (6.4-8.2); eGFR BLACK RACES > 60 (>60); eGFR NON BLACK RACES > 60 (>60)
[2017-09-08] MEDS: VALIUM PO SCH ×3 (05:54→21:23)
[2017-09-08] MEDS: PERCOCET TAB 5/325 MG PO PRN ×3 (05:58→21:47)
[2017-09-08 06:18] LABS: PLATELET MORPHOLOGY COMMENT NORMAL (NORMAL)
[2017-09-08] MEDS: LEVAQUIN PREMIX IV 750 MG 750 MG/150 ML BAG IV SCH (08:36)
[2017-09-08] MEDS: NICOTINE PATCH TD SCH (08:37)
[2017-09-08] MEDS: ROCEPHIN 1 GM IV PREMIX 1 GM/50 ML IV.SOLN. IV SCH (08:37)
[2017-09-08] MEDS: NORVASC TAB 10 MG PO SCH ×2 (08:38→21:22)
[2017-09-08] MEDS: ZANAFLEX PO SCH ×2 (08:38→21:23)
[2017-09-08] MEDS ORDERED: DUONEB 0.5 MG/3 MG NEB PRN (09:57)
[2017-09-08] MEDS ORDERED: SALINE 3% 15 ML NEB TX NEB ONE (09:59)
[2017-09-08] MEDS: SOLU-Medrol 125 MG VIAL IVP SCH ×3 (10:36→21:25)
[2017-09-08] MEDS ORDERED: SALINE 3% 15 ML NEB TX ONE (15:35)
--- NOTE | 2017-09-08 18:04 | PCM.PROG ---
Progress Note - Progress Note for Day of Date: 09/08/17 - Subjective Subjective: PRODUCTIVE COUGH, CONTINUE CO MID TO UPPER BACK PAIN - Past Medical Family Social History Past Med/Fam/Surg Hx: No changes since H&P Allergies: Allergies ketorolac [From Toradol] Allergy (Verified 08/27/17 12:01) nalbuphine [From Nubain] Allergy (Verified 08/27/17 12:01) prochlorperazine [From Compazine] Allergy (Verified 08/27/17 12:01) propoxyphene [From Darvocet-N] Allergy (Verified 09/06/17 21:23) - Review of Systems ROS: No change since H&P - Vital Signs and I&O's Vital Signs: Temperature 99.2 F Pulse Rate [Apical] 95 Pulse Rate 85 Respiratory Rate 20 Blood Pressure [Right Arm] 126/76 Blood Pressure [Left Arm] 106/71 Blood Pressure 142/87 O2 Sat by Pulse Oximetry 96 Intake and Output: Intake & Output 09/06/17 09/07/17 09/08/17 09/09/17 11:59 11:59 11:59 11:59 Intake Total 1690 2850 1460 Balance 1690 2850 1460 - Physical Exam Oriented: Normal Eyes: Normal Ear: Normal Nose: Normal Throat: Normal Respiratory: Wheezes, Rhonchi Cardiovascular: Normal : Normal Auscultation: Bowel Sounds: Normal Tenderness: Normal Skin: Normal Musculoskeletal: Back:Thoracic, Back:Lumbar Psychiatric: Anxiety Speech Pattern: Clear, Appropriate - Laboratory and Diagnostics Result Diagrams: 09/08/17 05:06 09/08/17 05:06 Labs: 09/08/17 15:52 Sputum - Expectorated Sputum - Final 09/06/17 18:28 Blood Blood Culture - Preliminary 09/06/17 18:17 Blood Blood Culture - Preliminary 09/07/17 20:04 Stool - Final Laboratory WBC 12.2 X10^3/uL (3.6-10.0) H D 09/08/17 05:06 RBC 4.56 X10^6/uL (3.5-5.4) 09/08/17 05:06 Hgb 11.8 g/dL (12.0-16.0) L D 09/08/17 05:06 Hct 35.7 % (36.0-47.0) L 09/08/17 05:06 MCV 78.2 fL (80.0-100.0) L 09/08/17 05:06 MCH 25.9 pg (27.0-34.0) L 09/08/17 05:06 MCHC 33.1 g/dL (33.0-35.0) 09/08/17 05:06 RDW 17.3 % (11.6-16.5) H 09/08/17 05:06 Plt Count 408 X10^3/uL (150.0-450.0) 09/08/17 05:06 Plt Count Comment Adequate (ADEQUATE) 09/08/17 05:06 MPV 8.4 fL (7.4-11.0) 09/08/17 05:06 Neut % 57.4 % (42.0-75.0) 09/08/17 05:06 Lymph % 30.0 % (21.0-51.0) 09/08/17 05:06 Bowie % 7.0 % (0.0-13.0) 09/08/17 05:06 Eos % 4.1 % (0.9-2.9) H 09/08/17 05:06 Baso % 1.5 % (0.2-1.0) H 09/08/17 05:06 Neut # 7.0 x10^3/uL (2.2-4.8) H 09/08/17 05:06 Lymph # 3.7 X10^3/uL (1.3-2.9) H 09/08/17 05:06 Bowie # 0.9 x10^3/uL (0.3-0.8) H 09/08/17 05:06 Eos # 0.5 x10^3/uL (0.0-0.2) H 09/08/17 05:06 Baso # 0.2 X10^3/uL (0.0-0.1) H 09/08/17 05:06 Absolute Nucleated RBC 0.0 /100WBC 09/08/17 05:06 Total Counted 100 09/07/17 05:35 Neutrophils % (Manual) 70 % (39-76) 09/07/17 05:35 Lymphocytes % (Manual) 21 % (13-43) 09/07/17 05:35 Monocytes % (Manual) 5 % (4-9) 09/07/17 05:35 Eosinophils % (Manual) 4 % (0-6) 09/07/17 05:35 Plt Morphology Comment Normal (NORMAL) 09/08/17 05:06 RBC Morphology Normal (NORMAL) 09/08/17 05:06 Hypochromasia Slight A 09/06/17 16:24 INR Target Range - 09/06/17 16:24 INR 1.01 (0.8-1.3) 09/06/17 16:24 PTT 28.8 SECONDS (22.9-36.5) 09/06/17 16:24 PTT Comment - 09/06/17 16:24 Sodium 142 mmol/L (136-145) 09/08/17 05:06 Corrected Sodium TNP 09/08/17 05:06 Potassium 3.7 mmol/L (3.5-5.1) 09/08/17 05:06 Chloride 108 mmol/L (98-107) H 09/08/17 05:06 Carbon Dioxide 26.4 mmol/L (21-32) 09/08/17 05:06 BUN 6 mg/dL (7-18) L 09/08/17 05:06 Creatinine 0.54 mg/dL (0.55-1.02) L 09/08/17 05:06 Est GFR (MDRD) Af Amer > 60 (>60) 09/08/17 05:06 Est GFR (MDRD) Non-Af > 60 (>60) 09/08/17 05:06 Glucose 98 mg/dL (65-99) 09/08/17 05:06 Calcium 8.8 mg/dL (8.5-10.1) 09/08/17 05:06 Corrected Calcium 9.7 mg/dL (8.5-10.1) 09/08/17 05:06 Magnesium 1.9 mg/dL (1.7-2.9) 09/07/17 05:35 Total Bilirubin 0.10 mg/dL (0.2-1.0) L 09/08/17 05:06 AST 10 Units/L (15-37) L 09/08/17 05:06 ALT 19 Units/L (12-78) 09/08/17 05:06 Alkaline Phosphatase 93 Units/L (46-116) 09/08/17 05:06 Creatine Kinase 31 Units/L (26-192) 09/07/17 05:35 CK-MB (CK-2) 1.0 ng/mL (0-4.0) 09/07/17 05:35 CK/CKMB % Calc 3.2 % (<4) 09/07/17 05:35 Troponin I < 0.02 ng/mL (0-1.5) 09/07/17 05:35 Total Protein 6.4 g/dL (6.4-8.2) 09/08/17 05:06 Albumin 2.9 g/dL (3.4-5.0) L 09/08/17 05:06 Globulin 3.5 g/dL (2.5-4.5) 09/08/17 05:06 Albumin/Globulin Ratio 0.8 Ratio (1.1-2.1) L 09/08/17 05:06 Triglycerides 204 mg/dL (0-150) H 09/07/17 05:35 Cholesterol 232 mg/dL (0-200) H 09/07/17 05:35 LDL Cholesterol, Calc 155 mg/dL (0-100) H 09/07/17 05:35 HDL Cholesterol 36 mg/dL (40-60) L 09/07/17 05:35 Cholesterol/HDL Ratio 6.4 (0.0-5.0) H 09/07/17 05:35 Specimen Type Clean catch urine 09/06/17 20:34 Urine Color Yellow (YELLOW) 09/06/17 20:34 Urine Appearance Clear (CLEAR) 09/06/17 20:34 Urine pH 5.0 (5.0 - 8.0) 09/06/17 20:34 Ur Specific [place] 1.015 (1.000-1.030) 09/06/17 20:34 Urine Protein 2+ (NEGATIVE) 09/06/17 20:34 Urine Glucose (UA) Negative (NEGATIVE) 09/06/17 20:34 Urine Ketones Negative (NEGATIVE) 09/06/17 20:34 Urine Occult Blood 1+ (NEGATIVE) 09/06/17 20:34 Urine Nitrite Negative (NEGATIVE) 09/06/17 20:34 Urine Bilirubin Negative (NEGATIVE) 09/06/17 20:34 Urine Urobilinogen Normal (NORMAL) 09/06/17 20:34 Ur Leukocyte Esterase 1+ (NEGATIVE) 09/06/17 20:34 Urine RBC 0 - 3 /HPF (NEGATIVE) 09/06/17 20:34 Urine WBC 0 - 3 /HPF (NEGATIVE) 09/06/17 20:34 Ur Squamous Epith Cells Few /HPF (NEGATIVE) 09/06/17 20:34 Amorphous Sediment Trace /HPF (NEGATIVE) 09/06/17 20:34 Urine Bacteria Trace /HPF (NEGATIVE) 09/06/17 20:34 Urine Mucus Moderate /HPF (NEGATIVE) 09/06/17 20:34 Ur Culture Indicated? No/not indicated 09/06/17 20:34 Stool Description 10g brn lqd 09/07/17 20:04 Stl Occult Blood (IFOB) Negative (NEGATIVE) 09/07/17 20:04 Stool for White Cells Negative (NEGATIVE) 09/07/17 20:15 Stl C. diff Tox B Gene Negative (NEGATIVE) 09/07/17 20:04 Stl C. diff [id number] Negative (NEGATIVE) 09/07/17 20:04 Cryptosporid parvum Ag Negative (NEGATIVE) 09/07/17 20:04 E. histolytica Antigen Negative (NEGATIVE) 09/07/17 20:04 Giardia lamblia Ag Negative (NEGATIVE) 09/07/17 20:04 H. pylori IgG Antibody Negative (NEGATIVE) 09/06/17 16:24 Influenza Type A (PCR) Negative (NEGATIVE) 09/07/17 13:14 Influenza Type B (PCR) Negative (NEGATIVE) 09/07/17 13:14 - Plan (1) Abdominal pain Status: Inactive Qualifiers: Abdominal location: generalized Qualified Code(s): R10.84 - Generalized abdominal pain Plan: CT ABD/PELVIS NEGATIVE. BLOOD CULTURES, UC, STOOL STUDIES RESULT PENDING. REPEAT AM LABS (2) Leukocytosis Status: Acute Qualifiers: Leukocytosis type: unspecified Qualified Code(s): D72.829 - Elevated white blood cell count, unspecified (3) UTI (urinary tract infection) Status: Inactive (4) Bronchitis Status: Acute Plan: RESP THERAPY, SPUTUM CULTURES. CONTINUE IV ABTX
[2017-09-08] MEDS: AMBIEN PO SCH (21:22)
[2017-09-09] MEDS: SOLU-Medrol 125 MG VIAL IVP SCH ×3 (06:09→21:02)
[2017-09-09] MEDS: NS 1000 ML 1,000 ML IV SCH ×4 (06:09→19:59)
[2017-09-09 06:16] LABS: BASOPHILS # (AUTO) 0.1 X10^3/uL (0.0-0.1); BASOPHILS % (AUTO) 0.4 % (0.2-1.0); HEMATOCRIT 38.1 % (36.0-47.0); HEMOGLOBIN 12.9 g/dL (12.0-16.0); LYMPHOCYTES # (AUTO) 1.2 X10^3/uL (1.3-2.9); LYMPHOCYTES % (AUTO) 7.7 % (21.0-51.0); MEAN CORPUSCULAR HEMOGLOBIN 26.3 pg (27.0-34.0); MEAN CORPUSCULAR HGB CONC 33.9 g/dL (33.0-35.0); MEAN CORPUSCULAR VOLUME 77.5 fL (80.0-100.0); MONOCYTES # (AUTO) 0.1 x10^3/uL (0.3-0.8); MONOCYTES % (AUTO) 0.9 % (0.0-13.0); NEUTROPHILS # (AUTO) 14.2 x10^3/uL (2.2-4.8); PLATELET COUNT 367 X10^3/uL (150.0-450.0); RED BLOOD COUNT 4.91 X10^6/uL (3.5-5.4); RED CELL DISTRIBUTION WIDTH 17.4 % (11.6-16.5); WHITE BLOOD COUNT 15.6 X10^3/uL (3.6-10.0)
--- NOTE | 2017-09-09 06:28 | RAD ---
HISTORY: Cough Study: Chest AP portable Comparison: September 06, 2017 Findings: The heart is within normal limits in size. The sandee are normal. The lung shea are clear. No pleural effusions are identified. The bony thorax is unremarkable. IMPRESSION: No significant abnormality identified Reported By:
[2017-09-09 06:44] LABS: ALANINE AMINOTRANSFERASE 16 Units/L (12-78); ALBUMIN 3.2 g/dL (3.4-5.0); ALKALINE PHOSPHATASE 99 Units/L (46-116); ASPARTATE AMINO TRANSFERASE 8 Units/L (15-37); BLOOD UREA NITROGEN 6 mg/dL (7-18); CALCIUM 9.6 mg/dL (8.5-10.1); CARBON DIOXIDE 22.4 mmol/L (21-32); CHLORIDE 107 mmol/L (98-107); COR CA(FOR HYPOALB) 10.2 mg/dL (8.5-10.1); COR NA(FOR HYPERGLY) 143 mmol/L (136-145); CREATININE 0.55 mg/dL (0.55-1.02); SODIUM 142 mmol/L (136-145); TOTAL PROTEIN 7.3 g/dL (6.4-8.2); eGFR BLACK RACES > 60 (>60); eGFR NON BLACK RACES > 60 (>60)
[2017-09-09 07:22] LABS: PLATELET MORPHOLOGY COMMENT NORMAL (NORMAL)
[2017-09-09] MEDS ORDERED: ROBITUSSIN DM PO PRN (09:14)
[2017-09-09] MEDS ORDERED: TUSSIONEX PENNKINETIC SUSP PO PRN (09:14)
[2017-09-09] MEDS: NICOTINE PATCH TD SCH (09:29)
[2017-09-09] MEDS: ROCEPHIN 1 GM IV PREMIX 1 GM/50 ML IV.SOLN. IV SCH (09:30)
[2017-09-09] MEDS: PERCOCET TAB 5/325 MG PO PRN ×2 (09:30→19:06)
[2017-09-09] MEDS: ZANAFLEX PO SCH ×2 (09:30→20:16)
[2017-09-09] MEDS: NORVASC TAB 10 MG PO SCH ×2 (09:31→20:16)
[2017-09-09] MEDS: LEVAQUIN PREMIX IV 750 MG 750 MG/150 ML BAG IV SCH (09:31)
[2017-09-09] MEDS: VALIUM PO SCH ×2 (09:31→20:16)
[2017-09-09] MEDS: MORPHINE SULFATE INJ 2 MG INJ IVP PRN (14:42)
--- NOTE | 2017-09-09 15:30 | RAD ---
History: Mid back pain. Technique: Three views of the thoracic spine Comparison:NONE Findings: The vertebral bodies demonstrate normal height and alignment. There is no acute fracture, dislocation , or subluxation. The intervertebral disc heights are intact. Impression: 1. No acute osseous abnormalities identified. Reported By:
[2017-09-09] MEDS: AMBIEN PO SCH (20:16)
[2017-09-10] MEDS: PERCOCET TAB 5/325 MG PO PRN ×3 (00:29→13:34)
[2017-09-10] MEDS: MORPHINE SULFATE INJ 2 MG INJ IVP PRN ×2 (01:48→10:04)
[2017-09-10] MEDS: NS 1000 ML 1,000 ML IV SCH ×2 (05:23→12:55)
[2017-09-10] MEDS: SOLU-Medrol 125 MG VIAL IVP SCH ×2 (05:39→13:39)
[2017-09-10 06:08] LABS: ALANINE AMINOTRANSFERASE 19 Units/L (12-78); ALBUMIN 3.3 g/dL (3.4-5.0); ALKALINE PHOSPHATASE 90 Units/L (46-116); ASPARTATE AMINO TRANSFERASE 10 Units/L (15-37); BLOOD UREA NITROGEN 8 mg/dL (7-18); CALCIUM 9.6 mg/dL (8.5-10.1); CARBON DIOXIDE 23.6 mmol/L (21-32); CHLORIDE 104 mmol/L (98-107); COR CA(FOR HYPOALB) 10.2 mg/dL (8.5-10.1); COR NA(FOR HYPERGLY) 141 mmol/L (136-145); CREATININE 0.72 mg/dL (0.55-1.02); SODIUM 140 mmol/L (136-145); eGFR BLACK RACES > 60 (>60); eGFR NON BLACK RACES > 60 (>60)
[2017-09-10 06:14] LABS: BASOPHILS % (AUTO) 0.2 % (0.2-1.0); HEMATOCRIT 36.9 % (36.0-47.0); HEMOGLOBIN 12.5 g/dL (12.0-16.0); LYMPHOCYTES # (AUTO) 1.3 X10^3/uL (1.3-2.9); LYMPHOCYTES % (AUTO) 5.5 % (21.0-51.0); MEAN CORPUSCULAR HEMOGLOBIN 26.2 pg (27.0-34.0); MEAN CORPUSCULAR HGB CONC 33.8 g/dL (33.0-35.0); MEAN CORPUSCULAR VOLUME 77.3 fL (80.0-100.0); MEAN PLATELET VOLUME 8.6 fL (7.4-11.0); MONOCYTES # (AUTO) 0.4 x10^3/uL (0.3-0.8); MONOCYTES % (AUTO) 1.7 % (0.0-13.0); NEUTROPHILS # (AUTO) 21.7 x10^3/uL (2.2-4.8); NEUTROPHILS % (AUTO) 92.6 % (42.0-75.0); PLATELET COUNT 430 X10^3/uL (150.0-450.0); RED BLOOD COUNT 4.77 X10^6/uL (3.5-5.4); RED CELL DISTRIBUTION WIDTH 17.1 % (11.6-16.5); WHITE BLOOD COUNT 23.4 X10^3/uL (3.6-10.0)
[2017-09-10] MEDS ORDERED: NS 100 ML IV 100 ML IV ONE (06:32)
[2017-09-10 07:07] LABS: PLATELET MORPHOLOGY COMMENT NORMAL (NORMAL)
--- NOTE | 2017-09-10 07:28 | CT ---
HISTORY: Chest pain, mid back pain Study: CT chest with contrast Comparison: None Technique: Axial post-contrast images with coronal and sagittal reformats. Dose reduction procedures were used with mA/kv adjusted for body size. Findings: Examination of the mediastinum demonstrated no evidence for mediastinal masses, enlarged lymphadenopa thy or enlarged hilar adenopathy. The thoracic aorta is within normal limits. A very minimal right pl eural effusion is present. No chest wall or axillary abnormality is identified. Those portions of the upper abdominal organs visualized were within normal limits. No significant thoracic spinal abnormal ity is identified. Examination of the lung shea demonstrated no significant nodules, masses, alveol ar infiltrates, areas of consolidation, peribronchial thickening, or bronchiectasis. IMPRESSION: Lungs clear Very minimal right pleural effusion No significant thoracic spinal abnormality Reported By:
[2017-09-10] MEDS: ROCEPHIN 1 GM IV PREMIX 1 GM/50 ML IV.SOLN. IV SCH (09:06)
[2017-09-10] MEDS: ZANAFLEX PO SCH (09:08)
[2017-09-10] MEDS: LEVAQUIN PREMIX IV 750 MG 750 MG/150 ML BAG IV SCH (09:08)
[2017-09-10] MEDS: NORVASC TAB 10 MG PO SCH (09:08)
[2017-09-10] MEDS: NICOTINE PATCH TD SCH (09:09)
[2017-09-10] MEDS: VALIUM PO SCH (09:09)
[2017-09-10 12:34] VITALS: BP 114/57
== END 2017-09-10 15:30 | disposition home or self-care (01) | DRG 202 ==
LOC: ER 16:19 → MED/SURG 20:02 → OBSVTOIN 09-07 09:00
PROVIDERS: ADMIT Internal Medicine; ATTEND Internal Medicine
DX: J20.8 Acute bronchitis due to other specified organisms (principal); N39.0 Urinary tract infection, site not specified; D72.828 Other elevated white blood cell count; M54.89 Other dorsalgia; R10.84 Generalized abdominal pain; J44.9 Chronic obstructive pulmonary disease, unspecified; J45.998 Other asthma; I10 Essential (primary) hypertension; R07.89 Other chest pain; M25.512 Pain in left shoulder; R94.31 Abnormal electrocardiogram [ECG] [EKG]
CPT/HCPCS: 36415; 71045; 71260; 72072; 74176; 80053; 80061; 81001; 82270; 82550; 82553; 83630; 83735; 84132; 84484; 85025; 85610; 85730; 86677; 87040; 87045; 87070; 87205; 87328; 87329; 87336; 87493; 87502; 87899; 93005; 93010; 94640; 94760; 96365; 96374; 96375; 99283; 99284; A4222; G0378; J0696; J1885; J1956; J2270; J2930; J3301